=== PATIENT | male | born 1940 | race Caucasian/White ===

== ENCOUNTER 2023-11-17 06:25 | Day surgery (SDC) | payer MEDICARE, OTHER, SELFPAY ==
[2023-11-10 07:08] VITALS: BMI 25.6
[2023-11-10 09:34] LABS: Hematocrit 41.1 % (39.0-52.0); Hemoglobin 14.3 g/dL (13.0-18.0); Mean Corp Hgb Conc. 34.8 g/dL (33.0-37.0); Mean Corpuscular Hgb 31.2 pg (27.0-31.0); Mean Corpuscular Volume 89.5 fL (80.0-94.0); Mean Platelet Volume 11.1 fL (7.4-10.4); Platelet Count 148 10^3/uL (130-400); Red Blood Cell Count 4.59 10^6/uL (4.70-6.10); White Blood Cell Count 5.3 10^3/uL (4.8-10.8)
[2023-11-10 10:25] LABS: Blood Urea Nitrogen 18 mg/dl (9-20); Calcium 10.2 mg/dl (8.4-10.2); Carbon Dioxide 28 mmol/L (22-30); Chloride 105 mmol/L (98-107); Estimated Creatinine Clearance 71 ml/min; Glucose 81 mg/dl (70-99); Potassium 4.7 mmol/L (3.5-5.1); Sodium 140 mmol/L (135-145); eGFR > 60.00
[2023-11-17] VITALS (19 sets, daily range): BP systolic 103–176; BP diastolic 44–84; BMI 25.6
[2023-11-17] MEDS: CYSVIEW KIT 100 MG INTRAVES (10:57)
[2023-11-17] MEDS: NORMOSOL-R 1000 IV (11:09)
[2023-11-17 11:43] LABS: INR 1.17; PT 14.9 Sec (11.4-14.6)
[2023-11-17 11:44] LABS: APTT 29.3 Sec (23.4-35.0)
[2023-11-17] MEDS: COLACE 100 MG PO (17:59)
[2023-11-18 03:15] VITALS: BP 115/66
[2023-11-18 07:51] VITALS: BP 123/69
[2023-11-18] MEDS: LIPITOR 80 MG PO (08:33)
[2023-11-18] MEDS: ASPIR LOW (ENTERIC COATED) 81 MG PO (08:33)
[2023-11-18] MEDS: PROTONIX 40 MG PO (08:33)
[2023-11-18] MEDS: THERAGRAN 1 TABLET PO (08:33)
[2023-11-18] MEDS: COLACE 100 MG PO ×2 (08:33→11:33)
[2023-11-18] MEDS: ZESTRIL 5 MG PO (08:33)
[2023-11-18] MEDS: TOPROL XL 25 MG PO (08:33)
--- NOTE | 2023-11-18 11:39 | CM ---
Reviewed the chart notes and spoke with the patient and his spouse at the bedside. Patient resides with spouse in a two story home with one step to enter. No DME/VN/SNF. The patient confirmed pharmacy of choice is the [facility].
Patient is discharged with no needs. Patient's spouse to provide transportation. CM continues to be available to patient/family and is monitoring medical plan for needs at discharge.
Plan: Discharge to home today.
[2023-11-18 11:46] VITALS: BP 137/78
--- NOTE | 2023-11-18 13:05 | W.PN.URO.CBU ---
Today's Communication / Plan
-
discharge
Assessment / Plan
-
stable
Diagnosis
-
Date of Service: November 18, 2023
-
Patient Diagnosis: s/p TURP
Post Op Day: 1
Subjective
-
feels good; already voided
Objective
-
Vital Signs
Temp Pulse Resp BP Pulse Ox
98.6 F 84 18 137/78 96
11/18/23 11:46 11/18/23 11:46 11/18/23 11:46 11/18/23 11:46 11/18/23 11:46
Intake and Output
11/17/23 11/18/23 11/19/23
06:59 06:59 06:59
Intake Total 1240 / 1240 450 / 450
Output Total -2300 / -2300 145 / 145
Balance 3540 / 3540 305 / 305
Intake:
Oral fluids 1040 / 1040 450 / 450
IV fluids (Total) 200 / 200
Normosol 200 / 200
Output:
Urine, Voided 445 / 445
True Urine Output from [facility]BI -2300 / -2300 -300 / -300
True urine output from hand 0 / 0
irrigation
Laboratory Results
11/10/23 07:06
11/10/23 07:06
Physical Exam
-
General - well developed, well nourished, no acute distress
Chest - clear bilaterally
Abdomen - soft, non-tender, positive bowel sounds, no CVAT, no incisional pain or distention
== END 2023-11-18 12:58 | disposition home or self-care (01) ==
LOC: SDS 06:25
PROVIDERS: ATTENDING PHYSICIAN Specialist; FAMILY PHYSICIAN Internal Medicine
DX: N40.1 Benign prostatic hyperplasia with lower urinary tract symptoms (principal); N30.80 Other cystitis without hematuria; Z85.51 Personal history of malignant neoplasm of bladder
CPT/HCPCS: 52601; 52204; 88305; 36415; 80048; 85027; 85610; 85730; 88344; A9589

== ENCOUNTER → 2024-02-14 08:52 | Outpatient (REF) | payer MEDICARE, OTHER, SELFPAY | LOC: RAD 08:52 | PROVIDERS: ATTENDING PHYSICIAN Internal Medicine Interventional Cardiology; FAMILY PHYSICIAN Internal Medicine | DX: I34.0 Nonrheumatic mitral (valve) insufficiency (principal); I35.0 Nonrheumatic aortic (valve) stenosis | CPT/HCPCS: 71250; 93306 ==

== ENCOUNTER 2024-08-17 06:24 | Day surgery (SDC) | payer MEDICARE, OTHER, SELFPAY | END 2024-08-17 12:39 | disposition home or self-care (01) | LOC: GI 06:24 | PROVIDERS: ATTENDING PHYSICIAN Internal Medicine Gastroenterology; FAMILY PHYSICIAN Internal Medicine | DX: Z12.11 Encounter for screening for malignant neoplasm of colon (principal); D12.2 Benign neoplasm of ascending colon; K55.20 Angiodysplasia of colon without hemorrhage; K64.8 Other hemorrhoids; K22.89 Other specified disease of esophagus; K44.9 Diaphragmatic hernia without obstruction or gangrene; Z86.0100 Personal history of colon polyps, unspecified | CPT/HCPCS: 45385; 43239; 88305 ==